=== PATIENT | male | born 1975 | race Caucasian/White ===

== ENCOUNTER 2016-12-03 14:00 | Inpatient (IN) | payer MEDICARE, MEDICAID ==
[~2016-12-03] VITALS: Ht 188 cm; Wt 94.1 kg
[~2016-12-03 14:00] MED LIST: AMLO-511 PO; DIVA500T69 PO; DULO30CA2 PO; DULO60CA44 PO; LEVE500T53 PO; OLAN10TA22 PO; OLAN10TA6 PO; POLY238P2 PO
[2016-12-03] MEDS ORDERED: LORazepam 2 MG/ML VIAL IM ONE ×2 (14:15→17:15)
[2016-12-03] MEDS ORDERED: DiphenhydrAMINE HCL 50 MG/ML VIAL IM ONE ×2 (14:15→17:15)
[2016-12-03] MEDS ORDERED: ZOLPIDEM TARTRATE 10 MG TABLET PO PRN (14:15)
[2016-12-03] MEDS ORDERED: DULO30CA2 PO (14:20)
[2016-12-03] MEDS ORDERED: OLAN10TA6 PO (14:20)
[2016-12-03 16:13] VITALS: BP 120/70
[2016-12-03] MEDS: OLANZapine 10 MG RAPDIS TABLET PO SCH (21:01)
[2016-12-04] MEDS: ChlorproMAZINE HCL 100 MG TABLET PO PRN (09:19)
[2016-12-04] MEDS: HydrOXYzine PAMOATE 50 MG CAPSULE PO PRN (09:20)
[2016-12-04] MEDS: DULoxetine HCL 30 MG CAPSULE PO SCH (09:20)
[2016-12-04 16:12] VITALS: BP 108/69
[2016-12-04] MEDS: OxyCODONE HCL 5 MG IR TABLET PO PRN ×2 (16:31→20:39)
[2016-12-04 16:32] VITALS: BP 126/77
[2016-12-04] MEDS ORDERED: MAG HYDROX/AL HYDROX/SIMETH ES 30 ML SUSPENSION UDCUP PO PRN (19:30)
[2016-12-04] MEDS ORDERED: ACETAMINOPHEN 325 MG TABLET PO PRN (19:30)
[2016-12-04] MEDS ORDERED: IBUPROFEN 600 MG TABLET PO PRN (19:30)
[2016-12-04] MEDS ORDERED: MAGNESIUM HYDROXIDE SUSPENSION 30 ML UDCUP PO PRN (19:30)
[2016-12-04] MEDS ORDERED: BENZOCAINE/MENTHOL LOZENGE MM PRN (19:30)
[2016-12-04] MEDS ORDERED: PETROLATUM,WHITE 71 GM JELLY TP PRN (19:30)
[2016-12-04] MEDS ORDERED: CloNIDine HCL 0.1 MG TABLET PO PRN (19:30)
[2016-12-04] MEDS ORDERED: ONDANSETRON HCL 4 MG TABLET PO PRN (19:30)
[2016-12-04] MEDS ORDERED: ALBUTEROL SULFATE HFA 90 MCG/PUFF 8 GM INHALER IH PRN (19:30)
[2016-12-04] MEDS ORDERED: LOPERAMIDE HCL 2 MG CAPSULE PO PRN (19:30)
[2016-12-04] MEDS ORDERED: BACITRACIN 28.4 GM OINTMENT TP PRN (19:30)
[2016-12-04] MEDS ORDERED: BENZOCAINE/MENTHOL LOZENGE PO PRN (20:00)
[2016-12-04] MEDS: OLANZapine 10 MG RAPDIS TABLET PO SCH (20:38)
[2016-12-04] MEDS ORDERED: FLUTICASONE PROPIONATE 50 MCG/SPRAY 16 GM NASAL SPRAY NASAL PRN (21:15)
[2016-12-05] MEDS: OxyCODONE HCL 5 MG IR TABLET PO PRN ×4 (01:51→17:25)
[2016-12-05 01:52] VITALS: BP 124/75
[2016-12-05 08:09] LABS: BASOPHILS # (AUTO) 0.02 K/uL (0.00-0.20); BASOPHILS % (AUTO) 0.3 % (0.0-2.0); EOSINOPHILS # (AUTO) 0.17 K/uL (0.00-0.70); EOSINOPHILS % (AUTO) 2.27 % (1.0-6.0); HEMATOCRIT 37.7 % (41-53); HEMOGLOBIN 13.2 g/dL (13.5-17.5); LYMPHOCYTES # (AUTO) 2.1 K/uL (1.0-4.8); LYMPHOCYTES % (AUTO) 27.1 % (22.0-44.0); MEAN CORPUSCULAR HEMOGLOBIN 28.8 pg (26.0-34.0); MEAN CORPUSCULAR VOLUME 83 fL (80-100); MONOCYTES # (AUTO) 0.8 K/uL (0.1-1.0); MONOCYTES % (AUTO) 10.5 % (2.0-9.0); NEUTROPHILS # (AUTO) 4.5 K/uL (1.8-7.7); NEUTROPHILS % (AUTO) 59.8 % (40.0-70.0); PLATELET COUNT (AUTO) 237 K/uL (150-450); RED BLOOD CELL COUNT(AUTO) 4.58 MIL/uL (4.50-5.90); RED CELL DISTRIBUTION WIDTH 13.5 % (11.5-14.5); WHITE BLOOD COUNT (AUTO) 7.6 K/uL (4.5-11.0)
[2016-12-05 08:27] LABS: ALANINE AMINOTRANSFERASE 29 U/L (12-78); ALBUMIN 3.7 g/dL (3.4-5.0); ANION GAP 5 mmol/L (8-16); ASPARTATE AMINOTRANSFERASE 21 U/L (15-37); BILIRUBIN,TOTAL 0.3 mg/dL (0.1-1.0); CALCIUM, TOTAL 8.5 mg/dL (8.8-10.5); CARBON DIOXIDE 30 mmol/L (22-29); CHLORIDE 98 mmol/L (98-107); CREATININE 0.94 mg/dL (0.60-1.30); GLOMERULAR FILTR. RATE CALC > 60 mL/min (>60); POTASSIUM 4.3 mmol/L (3.5-5.1); SODIUM SERUM 133 mmol/L (136-145); TOTAL PROTEIN, SERUM 7.1 g/dL (6.4-8.2); UREA NITROGEN, BLOOD 14 mg/dL (7-18)
[2016-12-05 08:50] VITALS: BP 106/62
[2016-12-05] MEDS: CHOLECALCIFEROL (VIT D3) 1,000 UNITS TABLET PO SCH (09:59)
[2016-12-05] MEDS: DOCUSATE SODIUM 100 MG CAPSULE PO SCH (10:00)
[2016-12-05] MEDS: LevETIRAcetam 500 MG TABLET PO SCH ×2 (10:00→17:08)
[2016-12-05] MEDS: OMEPRAZOLE 20 MG CAPSULE PO SCH (10:00)
[2016-12-05] MEDS: DULoxetine HCL 30 MG CAPSULE PO SCH (10:00)
[2016-12-05] MEDS: NICOTINE 21 MG/24 HOUR PATCH TD SCH (11:18)
[2016-12-05 16:29] VITALS: BP 108/69
[2016-12-05 17:20] VITALS: BP 110/73
[2016-12-05] MEDS: OLANZapine 10 MG RAPDIS TABLET PO SCH (20:18)
[2016-12-06 02:10] VITALS: BP 116/66
[2016-12-06] MEDS: OxyCODONE HCL 5 MG IR TABLET PO PRN ×4 (02:18→20:38)
[2016-12-06 07:06] VITALS: BP 113/80
[2016-12-06] MEDS ORDERED: GuaiFENesin/D-METHORPHAN/PHENYLEPH 5 ML LIQUID ORAL.SYG PO PRN (07:15)
[2016-12-06 08:08] VITALS: BP 117/70
[2016-12-06] MEDS: DULoxetine HCL 30 MG CAPSULE PO SCH (09:33)
[2016-12-06] MEDS: LevETIRAcetam 500 MG TABLET PO SCH ×2 (09:33→17:39)
[2016-12-06] MEDS: DOCUSATE SODIUM 100 MG CAPSULE PO SCH (09:33)
[2016-12-06] MEDS: CHOLECALCIFEROL (VIT D3) 1,000 UNITS TABLET PO SCH (09:33)
[2016-12-06] MEDS: OMEPRAZOLE 20 MG CAPSULE PO SCH (09:33)
[2016-12-06] MEDS: NICOTINE 21 MG/24 HOUR PATCH TD SCH (10:13)
[2016-12-06 12:20] VITALS: BP 128/74
[2016-12-06 12:22] VITALS: BP 128/76
[2016-12-06] MEDS: HydrOXYzine PAMOATE 50 MG CAPSULE PO PRN (13:05)
[2016-12-06] MEDS: ChlorproMAZINE HCL 100 MG TABLET PO PRN (13:05)
[2016-12-06] MEDS: MUPIROCIN CALCIUM 2% 22 GM OINTMENT NASAL SCH (17:39)
[2016-12-06 20:35] VITALS: BP 134/76
[2016-12-06] MEDS: OLANZapine 10 MG RAPDIS TABLET PO SCH (20:37)
[2016-12-07 02:15] VITALS: BP 120/79
[2016-12-07] MEDS: OxyCODONE HCL 5 MG IR TABLET PO PRN ×4 (02:24→14:25)
[2016-12-07 06:25] VITALS: BP 123/70
[2016-12-07 08:00] VITALS: BP 109/81
[2016-12-07] MEDS: DULoxetine HCL 30 MG CAPSULE PO SCH (08:54)
[2016-12-07] MEDS: LevETIRAcetam 500 MG TABLET PO SCH ×2 (08:54→17:33)
[2016-12-07] MEDS: CHOLECALCIFEROL (VIT D3) 1,000 UNITS TABLET PO SCH (08:54)
[2016-12-07] MEDS: DOCUSATE SODIUM 100 MG CAPSULE PO SCH (08:54)
[2016-12-07] MEDS: OMEPRAZOLE 20 MG CAPSULE PO SCH (08:55)
[2016-12-07] MEDS: NICOTINE 21 MG/24 HOUR PATCH TD SCH (08:56)
[2016-12-07] MEDS: MUPIROCIN CALCIUM 2% 22 GM OINTMENT NASAL SCH ×2 (10:02→17:32)
[2016-12-07 10:33] VITALS: BP 110/87
[2016-12-07 14:20] VITALS: BP 125/94
[2016-12-07 17:13] VITALS: BP 112/81
[2016-12-07] MEDS: HydrOXYzine PAMOATE 50 MG CAPSULE PO PRN (17:35)
[2016-12-07] MEDS: ChlorproMAZINE HCL 100 MG TABLET PO PRN (17:35)
[2016-12-07] MEDS: OLANZapine 10 MG RAPDIS TABLET PO SCH (21:57)
[2016-12-08 04:20] VITALS: BP 114/80
[2016-12-08] MEDS: OxyCODONE HCL 5 MG IR TABLET PO PRN ×4 (04:20→16:44)
[2016-12-08 08:32] VITALS: BP 121/78
[2016-12-08] MEDS: DULoxetine HCL 30 MG CAPSULE PO SCH (09:08)
[2016-12-08] MEDS: CHOLECALCIFEROL (VIT D3) 1,000 UNITS TABLET PO SCH (09:08)
[2016-12-08] MEDS: OMEPRAZOLE 20 MG CAPSULE PO SCH (09:08)
[2016-12-08] MEDS: MUPIROCIN CALCIUM 2% 22 GM OINTMENT NASAL SCH ×2 (09:08→16:28)
[2016-12-08] MEDS: LevETIRAcetam 500 MG TABLET PO SCH ×2 (09:08→16:28)
[2016-12-08] MEDS: DOCUSATE SODIUM 100 MG CAPSULE PO SCH (09:09)
[2016-12-08] MEDS: NICOTINE 21 MG/24 HOUR PATCH TD SCH (09:11)
[2016-12-08 09:36] VITALS: BP 139/84
[2016-12-08 12:41] VITALS: BP 120/77
[2016-12-08 16:43] VITALS: BP 127/86
[2016-12-08] MEDS: OLANZapine 10 MG RAPDIS TABLET PO SCH (21:08)
[2016-12-09 04:17] VITALS: BP 145/88
[2016-12-09] MEDS: OxyCODONE HCL 5 MG IR TABLET PO PRN ×3 (04:21→12:40)
[2016-12-09 08:00] VITALS: BP 156/78
[2016-12-09 08:35] VITALS: BP 150/82
[2016-12-09] MEDS: LevETIRAcetam 500 MG TABLET PO SCH (08:38)
[2016-12-09] MEDS: CHOLECALCIFEROL (VIT D3) 1,000 UNITS TABLET PO SCH (08:38)
[2016-12-09] MEDS: DULoxetine HCL 30 MG CAPSULE PO SCH (08:38)
[2016-12-09] MEDS: DOCUSATE SODIUM 100 MG CAPSULE PO SCH (08:38)
[2016-12-09] MEDS: OMEPRAZOLE 20 MG CAPSULE PO SCH (08:38)
[2016-12-09] MEDS: NICOTINE 21 MG/24 HOUR PATCH TD SCH (08:41)
[2016-12-09] MEDS: MUPIROCIN CALCIUM 2% 22 GM OINTMENT NASAL SCH (10:33)
[2016-12-09] MEDS ORDERED: OLAN10TA6 PO (11:48)
[2016-12-09] MEDS ORDERED: OMEP20 PO (11:48)
[2016-12-09] MEDS ORDERED: LEVE500T53 PO (11:48)
[2016-12-09] MEDS ORDERED: VITAD1000 PO (11:48)
[2016-12-09] MEDS ORDERED: DSS100 PO (11:48)
[2016-12-09] MEDS ORDERED: DULO30CA2 PO (11:48)
[2016-12-09 12:43] VITALS: BP 129/81
== END 2016-12-09 14:57 | disposition home or self-care (01) | DRG 885 ==
LOC: B3A 14:10 → B2S 12-05 18:01 → 3EI 12-06 13:45
PROVIDERS: ADMIT Psychiatry & Neurology Psychiatry; ATTEND Psychiatry & Neurology Psychiatry
DX: F25.0 Schizoaffective disorder, bipolar type (principal); F11.20 Opioid dependence, uncomplicated; R45.851 Suicidal ideations; I10 Essential (primary) hypertension; B18.2 Chronic viral hepatitis C; E55.9 Vitamin D deficiency, unspecified; F12.90 Cannabis use, unspecified, uncomplicated; F14.90 Cocaine use, unspecified, uncomplicated; F17.200 Nicotine dependence, unspecified, uncomplicated; G40.909 Epilepsy, unspecified, not intractable, without status epilepticus; G47.00 Insomnia, unspecified; G89.29 Other chronic pain; J44.9 Chronic obstructive pulmonary disease, unspecified; K21.9 Gastro-esophageal reflux disease without esophagitis; K59.00 Constipation, unspecified; K74.60 Unspecified cirrhosis of liver; Z91.14 Patient's other noncompliance with medication regimen; Z71.6 Tobacco abuse counseling; Z71.51 Drug abuse counseling and surveillance of drug abuser; Z88.8 Allergy status to other drugs, medicaments and biological substances; Z79.899 Other long term (current) drug therapy; Z72.89 Other problems related to lifestyle; Z82.49 Family history of ischemic heart disease and other diseases of the circulatory system; Z81.8 Family history of other mental and behavioral disorders
CPT/HCPCS: 87081; A0429; J1200; J2060; J3230

== ENCOUNTER → 2016-12-22 | Outpatient (CLI) | payer MEDICARE, MEDICAID ==
[~2016-12-22] VITALS: Ht 188 cm; Wt 93.5 kg
[~2016-12-22] MED LIST changes: +ACAM333T7 PO; -AMLO-511 PO; -DIVA500T69 PO; +DSS100 PO; -DULO60CA44 PO; +MIRALAX PO; -OLAN10TA22 PO; +OLAN5Z PO; +OMEP20 PO; -POLY238P2 PO; +SULF1TAB42 PO; +VITAD1000 PO
[2016-12-22 12:34] VITALS: BP 118/80
== END | disposition home or self-care (01) ==
LOC: SRCNTR 11:54
PROVIDERS: ATTEND Hospitalist
DX: J44.9 Chronic obstructive pulmonary disease, unspecified (principal); I10 Essential (primary) hypertension; E03.9 Hypothyroidism, unspecified; E78.5 Hyperlipidemia, unspecified; G89.29 Other chronic pain; G40.909 Epilepsy, unspecified, not intractable, without status epilepticus; B18.2 Chronic viral hepatitis C
CPT/HCPCS: G0463

== ENCOUNTER 2017-01-04 10:48 | Inpatient (IN) | payer MEDICARE, MEDICAID ==
[~2017-01-04] VITALS: Ht 188 cm; Wt 94.0 kg
[~2017-01-04 10:48] MED LIST changes: -ACAM333T7 PO; -MIRALAX PO; -OLAN5Z PO; -SULF1TAB42 PO
[2017-01-04 11:09] VITALS: BP 121/80
[2017-01-04] MEDS ORDERED: ZOLPIDEM TARTRATE 10 MG TABLET PO PRN (11:30)
[2017-01-04 13:00] VITALS: BP 113/68
[2017-01-04] MEDS: DULoxetine HCL 30 MG CAPSULE PO SCH (13:25)
[2017-01-04 16:00] VITALS: BP 117/76
[2017-01-04] MEDS: LORazepam 2 MG TABLET PO PRN (16:44)
[2017-01-04] MEDS: LevETIRAcetam 500 MG TABLET PO SCH (17:14)
[2017-01-04] MEDS ORDERED: DiphenhydrAMINE HCL 50 MG/ML VIAL IM ONE (18:45)
[2017-01-04] MEDS ORDERED: LORazepam 2 MG/ML VIAL IM ONE (18:45)
[2017-01-04] MEDS ORDERED: FluPHENAZine HCL 2.5 MG/ML INJ IM ONE (18:45)
[2017-01-04] MEDS ORDERED: OLANZapine 10 MG RAPDIS TABLET PO SCH (21:00)
[2017-01-05 08:57] VITALS: BP 125/95
[2017-01-05] MEDS: DOCUSATE SODIUM 100 MG CAPSULE PO SCH (09:00)
[2017-01-05] MEDS: DULoxetine HCL 30 MG CAPSULE PO SCH (09:00)
[2017-01-05] MEDS: LevETIRAcetam 500 MG TABLET PO SCH ×2 (09:00→17:48)
[2017-01-05] MEDS: OMEPRAZOLE 20 MG CAPSULE PO SCH (09:00)
[2017-01-05] MEDS: CHOLECALCIFEROL (VIT D3) 1,000 UNITS TABLET PO SCH (09:00)
[2017-01-05] MEDS ORDERED: BACITRACIN 28.4 GM OINTMENT TP PRN (09:45)
[2017-01-05] MEDS ORDERED: IBUPROFEN 600 MG TABLET PO PRN (09:45)
[2017-01-05] MEDS ORDERED: LOPERAMIDE HCL 2 MG CAPSULE PO PRN (09:45)
[2017-01-05] MEDS ORDERED: MAG HYDROX/AL HYDROX/SIMETH ES 30 ML SUSPENSION UDCUP PO PRN (09:45)
[2017-01-05] MEDS ORDERED: ONDANSETRON HCL 4 MG TABLET PO PRN (09:45)
[2017-01-05] MEDS ORDERED: PETROLATUM,WHITE 71 GM JELLY TP PRN (09:45)
[2017-01-05] MEDS ORDERED: ALBUTEROL SULFATE HFA 90 MCG/PUFF 8 GM INHALER IH PRN (09:45)
[2017-01-05] MEDS ORDERED: MAGNESIUM HYDROXIDE SUSPENSION 30 ML UDCUP PO PRN (09:45)
[2017-01-05] MEDS ORDERED: CloNIDine HCL 0.1 MG TABLET PO PRN (09:45)
[2017-01-05] MEDS ORDERED: BENZOCAINE/MENTHOL LOZENGE [8 LOZENGES/PACKET] MM PRN (09:45)
[2017-01-05] MEDS ORDERED: ACETAMINOPHEN 325 MG TABLET PO PRN (09:45)
[2017-01-05] MEDS: LORazepam 2 MG TABLET PO PRN ×2 (11:04→15:12)
[2017-01-05] MEDS ORDERED: HydrOXYzine PAMOATE 50 MG CAPSULE PO PRN ×2 (13:30→16:45)
[2017-01-05] MEDS ORDERED: GuaiFENesin/D-METHORPHAN [SUGAR-FREE] 200-20MG/10 ML SYRUP UDCUP PO PRN (13:30)
[2017-01-05 16:20] VITALS: BP 91/56
[2017-01-05] MEDS ORDERED: GABAPENTIN 400 MG CAPSULE PO PRN (16:45)
[2017-01-05] MEDS ORDERED: ESZOPICLONE 3 MG TABLET PO PRN (16:45)
[2017-01-05] MEDS: OxyCODONE HCL 5 MG IR TABLET PO PRN (17:46)
[2017-01-05] MEDS: THIAMINE HCL 100 MG TABLET PO SCH (17:48)
[2017-01-05] MEDS: ACAMPROSATE CALCIUM 333 MG DR TABLET PO SCH (17:48)
[2017-01-05 17:49] VITALS: BP 118/76
[2017-01-05] MEDS ORDERED: FluPHENAZine HCL 2.5 MG/ML INJ IM ONE ×2 (19:30→19:35)
[2017-01-05] MEDS ORDERED: OLANZapine 5 MG RAPDIS TABLET PO PRN (19:30)
[2017-01-05] MEDS ORDERED: DiphenhydrAMINE HCL 50 MG/ML VIAL IM ONE (19:30)
[2017-01-05] MEDS ORDERED: DiphenhydrAMINE HCL 50 MG/ML VIAL ONE (19:36)
[2017-01-05] MEDS ORDERED: OLANZapine 5 MG RAPDIS TABLET PO SCH (21:00)
[2017-01-06 03:46] VITALS: BP 135/77
[2017-01-06] MEDS: OxyCODONE HCL 5 MG IR TABLET PO PRN ×4 (03:50→17:45)
[2017-01-06] MEDS ORDERED: MULTIVITAMINS WITH MINERALS, THERAPEUTIC TABLET PO SCH (09:00)
[2017-01-06] MEDS ORDERED: FOLIC ACID 1 MG TABLET PO SCH (09:00)
[2017-01-06] MEDS: DOCUSATE SODIUM 100 MG CAPSULE PO SCH (09:08)
[2017-01-06] MEDS: LevETIRAcetam 500 MG TABLET PO SCH ×2 (09:08→16:26)
[2017-01-06] MEDS: DULoxetine HCL 30 MG CAPSULE PO SCH (09:08)
[2017-01-06] MEDS: THIAMINE HCL 100 MG TABLET PO SCH ×2 (09:08→16:26)
[2017-01-06] MEDS: OMEPRAZOLE 20 MG CAPSULE PO SCH (09:08)
[2017-01-06] MEDS: ACAMPROSATE CALCIUM 333 MG DR TABLET PO SCH ×3 (09:08→16:26)
[2017-01-06 09:10] VITALS: BP 143/87
[2017-01-06] MEDS: CHOLECALCIFEROL (VIT D3) 1,000 UNITS TABLET PO SCH (09:16)
[2017-01-06 13:42] VITALS: BP 121/76
[2017-01-06] MEDS ORDERED: OLAN5Z PO (16:17)
[2017-01-06] MEDS ORDERED: DULO30CA2 PO (16:17)
[2017-01-06] MEDS ORDERED: LEVE500T53 PO (16:17)
[2017-01-06] MEDS ORDERED: ACAM333T7 PO (16:17)
[2017-01-06] MEDS ORDERED: OMEP20 PO (16:47)
== END 2017-01-06 17:45 | disposition home or self-care (01) | DRG 885 ==
LOC: B2S 12:33 → EDSTATUS 12:38 → 3EX 17:10
PROVIDERS: ADMIT Psychiatry & Neurology Psychiatry; ATTEND Psychiatry & Neurology Psychiatry
PROC: GZ51ZZZ Individual Psychotherapy, Behavioral (ICD-10-PCS; principal; 2017-01-04)
DX: F25.9 Schizoaffective disorder, unspecified (principal); R45.851 Suicidal ideations; F11.20 Opioid dependence, uncomplicated; E87.1 Hypo-osmolality and hyponatremia; F32.9 Major depressive disorder, single episode, unspecified; J44.9 Chronic obstructive pulmonary disease, unspecified; I10 Essential (primary) hypertension; G40.909 Epilepsy, unspecified, not intractable, without status epilepticus; B18.2 Chronic viral hepatitis C; E55.9 Vitamin D deficiency, unspecified; G47.33 Obstructive sleep apnea (adult) (pediatric); T40.605A Adverse effect of unspecified narcotics, initial encounter; K59.03 Drug induced constipation; Z79.899 Other long term (current) drug therapy; F15.90 Other stimulant use, unspecified, uncomplicated; F17.210 Nicotine dependence, cigarettes, uncomplicated; F12.90 Cannabis use, unspecified, uncomplicated; Z98.890 Other specified postprocedural states; Z71.6 Tobacco abuse counseling; Z71.51 Drug abuse counseling and surveillance of drug abuser; Z91.14 Patient's other noncompliance with medication regimen; Z87.09 Personal history of other diseases of the respiratory system; Z82.5 Family history of asthma and other chronic lower respiratory diseases; Z82.49 Family history of ischemic heart disease and other diseases of the circulatory system; X58.XXXA Exposure to other specified factors, initial encounter; Y93.89 Activity, other specified; Y92.89 Other specified places as the place of occurrence of the external cause; Y99.8 Other external cause status; Z88.8 Allergy status to other drugs, medicaments and biological substances
CPT/HCPCS: 87081; J1200; J2060; J3490; J3535

== ENCOUNTER 2017-01-14 14:45 | Inpatient (IN) | payer MEDICARE, MEDICAID ==
[~2017-01-14] VITALS: Ht 182.9 cm; Wt 92.1 kg
[~2017-01-14 14:45] MED LIST changes: +ACAM333T7 PO; -OLAN10TA6 PO; +OLAN5Z PO; -VITAD1000 PO
[2017-01-14] MEDS ORDERED: ZOLPIDEM TARTRATE 10 MG TABLET PO PRN (18:00)
[2017-01-14] MEDS ORDERED: LORazepam 2 MG TABLET PO PRN (18:00)
[2017-01-14] MEDS ORDERED: OLANZapine 5 MG RAPDIS TABLET PO PRN (18:00)
[2017-01-14] MEDS ORDERED: LIDOCAINE HCL/PF 1% 2 ML VIAL IM ONE (18:15)
[2017-01-14] MEDS ORDERED: CefTRIAXone SODIUM 1 GM/VIAL IM ONE (18:15)
[2017-01-14] MEDS ORDERED: KETOROLAC TROMETHAMINE 30 MG/ML VIAL IM ONE (18:15)
[2017-01-14] MEDS ORDERED: OLANZapine 5 MG TABLET PO ONE (19:15)
[2017-01-14] MEDS ORDERED: LORazepam 2 MG/ML VIAL IM ONE (19:15)
[2017-01-14] MEDS ORDERED: DiphenhydrAMINE HCL 50 MG/ML VIAL IM ONE (19:15)
[2017-01-14 20:16] LABS: BASOPHILS % (AUTO) 0.2 % (0.0-2.0); EOSINOPHILS % (AUTO) 1.6 % (1.0-6.0); HEMATOCRIT 40.3 % (41-53); HEMOGLOBIN 13.5 g/dL (13.5-17.5); LYMPHOCYTES # (AUTO) 2.1 K/uL (1.0-4.8); LYMPHOCYTES % (AUTO) 20.4 % (22.0-44.0); MEAN CORPUSCULAR HEMOGLOBIN 28.3 pg (26.0-34.0); MEAN CORPUSCULAR HGB CONC 33.6 G/dL (31.0-37.0); MEAN CORPUSCULAR VOLUME 84 fL (80-100); MONOCYTES # (AUTO) 0.9 K/uL (0.1-1.0); NEUTROPHILS % (AUTO) 68.8 % (40.0-70.0); PLATELET COUNT (AUTO) 261 K/uL (150-450); RED BLOOD CELL COUNT(AUTO) 4.79 MIL/uL (4.50-5.90); RED CELL DISTRIBUTION WIDTH 12.9 % (11.5-14.5); WHITE BLOOD COUNT (AUTO) 10.1 K/uL (4.5-11.0)
[2017-01-14 20:22] LABS: ANION GAP 13 mmol/L (8-16); CALCIUM, TOTAL 9.1 mg/dL (8.8-10.5); CARBON DIOXIDE 25 mmol/L (22-29); CHLORIDE 99 mmol/L (98-107); CREATININE 0.97 mg/dL (0.60-1.30); GLOMERULAR FILTR. RATE CALC > 60 mL/min (>60); POTASSIUM 3.2 mmol/L (3.5-5.1); SODIUM SERUM 137 mmol/L (136-145); UREA NITROGEN, BLOOD 11 mg/dL (7-18)
[2017-01-14 20:29] LABS: ALANINE AMINOTRANSFERASE 46 U/L (12-78); ALBUMIN 3.7 g/dL (3.4-5.0); ASPARTATE AMINOTRANSFERASE 45 U/L (15-37); BILIRUBIN,TOTAL 0.7 mg/dL (0.1-1.0); TOTAL PROTEIN, SERUM 8.1 g/dL (6.4-8.2)
[2017-01-14] MEDS ORDERED: POTASSIUM CHLORIDE 20 MEQ ER TABLET PO ONE (20:45)
[2017-01-14 21:11] VITALS: BP 114/72
[2017-01-14] MEDS ORDERED: ACETAMINOPHEN 325 MG TABLET PO PRN (21:30)
[2017-01-14] MEDS ORDERED: INFLUENZA VIRUS VACCINE QVS 2016-17 (3YR+)/PF 60 MCG/0.5 ML SYRINGE IM ONE (21:30)
[2017-01-14] MEDS ORDERED: -PHARMACY VACCINE NOTE- MISC ONE ×2 (21:30)
[2017-01-14] MEDS ORDERED: IBUPROFEN 600 MG TABLET PO PRN (21:30)
[2017-01-15] MEDS: DOCUSATE SODIUM 100 MG CAPSULE PO SCH (09:00)
[2017-01-15] MEDS: CHOLECALCIFEROL (VIT D3) 1,000 UNITS TABLET PO SCH (09:00)
[2017-01-15] MEDS: POLYETHYLENE GLYCOL 3350 17 GM PACKET PO SCH (09:00)
[2017-01-15] MEDS: LevETIRAcetam 500 MG TABLET PO SCH ×2 (09:00→17:00)
[2017-01-15] MEDS: OMEPRAZOLE 20 MG CAPSULE PO SCH (09:00)
[2017-01-15 10:02] VITALS: BP 135/86
[2017-01-15] MEDS: OxyCODONE HCL 5 MG IR TABLET PO PRN ×3 (10:02→23:59)
[2017-01-15 11:02] VITALS: BP 125/76
[2017-01-15] MEDS ORDERED: POTASSIUM CHLORIDE 20 MEQ ER TABLET PO ONE (12:00)
[2017-01-15] MEDS ORDERED: MAGNESIUM HYDROXIDE SUSPENSION 30 ML UDCUP PO PRN (12:15)
[2017-01-15] MEDS ORDERED: HydrOXYzine PAMOATE 50 MG CAPSULE PO PRN (12:15)
[2017-01-15] MEDS ORDERED: PROMETHAZINE HCL 25 MG TABLET PO PRN (12:15)
[2017-01-15] MEDS ORDERED: GuaiFENesin/D-METHORPHAN [SUGAR-FREE] 200-20MG/10 ML SYRUP UDCUP PO PRN (12:15)
[2017-01-15] MEDS ORDERED: ACETAMINOPHEN 325 MG TABLET PO PRN (12:15)
[2017-01-15] MEDS ORDERED: MAG HYDROX/AL HYDROX/SIMETH ES 30 ML SUSPENSION UDCUP PO PRN (12:15)
[2017-01-15] MEDS ORDERED: LOPERAMIDE HCL 2 MG CAPSULE PO PRN (12:15)
[2017-01-15] MEDS: ACAMPROSATE CALCIUM 333 MG DR TABLET PO SCH ×2 (12:42→17:00)
[2017-01-15 14:29] VITALS: BP 113/82
[2017-01-15] MEDS: CEPHALEXIN MONOHYDRATE 500 MG CAPSULE PO SCH ×2 (17:00→21:00)
[2017-01-15] MEDS: THIAMINE HCL 100 MG TABLET PO SCH (17:00)
[2017-01-15] MEDS ORDERED: LevETIRAcetam 500 MG TABLET PO SCH (17:00)
[2017-01-15] MEDS: OLANZapine 5 MG RAPDIS TABLET PO SCH (21:00)
[2017-01-16] VITALS: BP 115/66
[2017-01-16 05:40] VITALS: BP 141/90
[2017-01-16] MEDS: OxyCODONE HCL 5 MG IR TABLET PO PRN ×3 (05:43→14:49)
[2017-01-16] MEDS: ACAMPROSATE CALCIUM 333 MG DR TABLET PO SCH ×3 (08:32→16:15)
[2017-01-16] MEDS: DULoxetine HCL 30 MG CAPSULE PO SCH (08:33)
[2017-01-16] MEDS: FOLIC ACID 1 MG TABLET PO SCH (08:33)
[2017-01-16] MEDS: DOCUSATE SODIUM 100 MG CAPSULE PO SCH (08:33)
[2017-01-16] MEDS: CEPHALEXIN MONOHYDRATE 500 MG CAPSULE PO SCH ×4 (08:34→20:57)
[2017-01-16] MEDS: POLYETHYLENE GLYCOL 3350 17 GM PACKET PO SCH (08:34)
[2017-01-16] MEDS: LevETIRAcetam 500 MG TABLET PO SCH ×2 (08:34→16:15)
[2017-01-16] MEDS: CHOLECALCIFEROL (VIT D3) 1,000 UNITS TABLET PO SCH (08:35)
[2017-01-16] MEDS: THIAMINE HCL 100 MG TABLET PO SCH ×2 (08:35→16:15)
[2017-01-16] MEDS: MULTIVITAMINS WITH MINERALS, THERAPEUTIC TABLET PO SCH (08:35)
[2017-01-16] MEDS: OMEPRAZOLE 20 MG CAPSULE PO SCH (08:35)
[2017-01-16 10:43] VITALS: BP 116/93
[2017-01-16 16:00] VITALS: BP 121/85
[2017-01-16] MEDS: OLANZapine 5 MG RAPDIS TABLET PO SCH (20:57)
[2017-01-17 01:06] VITALS: BP 132/93
[2017-01-17] MEDS: OxyCODONE HCL 5 MG IR TABLET PO PRN ×4 (01:09→16:00)
[2017-01-17] MEDS: MULTIVITAMINS WITH MINERALS, THERAPEUTIC TABLET PO SCH (09:00)
[2017-01-17] MEDS: POLYETHYLENE GLYCOL 3350 17 GM PACKET PO SCH (09:00)
[2017-01-17] MEDS: LevETIRAcetam 500 MG TABLET PO SCH ×2 (09:00→16:01)
[2017-01-17] MEDS: OMEPRAZOLE 20 MG CAPSULE PO SCH (09:00)
[2017-01-17] MEDS: DOCUSATE SODIUM 100 MG CAPSULE PO SCH (09:00)
[2017-01-17] MEDS: ACAMPROSATE CALCIUM 333 MG DR TABLET PO SCH ×3 (09:00→16:00)
[2017-01-17] MEDS: THIAMINE HCL 100 MG TABLET PO SCH ×2 (09:00→16:01)
[2017-01-17] MEDS: FOLIC ACID 1 MG TABLET PO SCH (09:00)
[2017-01-17] MEDS: CHOLECALCIFEROL (VIT D3) 1,000 UNITS TABLET PO SCH (09:00)
[2017-01-17] MEDS: DULoxetine HCL 30 MG CAPSULE PO SCH (09:00)
[2017-01-17] MEDS: CEPHALEXIN MONOHYDRATE 500 MG CAPSULE PO SCH ×4 (09:13→20:53)
[2017-01-17 10:44] VITALS: BP 129/80
[2017-01-17 16:02] VITALS: BP 124/78
[2017-01-17] MEDS: OLANZapine 5 MG RAPDIS TABLET PO SCH (20:53)
[2017-01-18 01:01] VITALS: BP 136/86
[2017-01-18] MEDS: OxyCODONE HCL 5 MG IR TABLET PO PRN ×4 (01:01→16:10)
[2017-01-18] MEDS: CEPHALEXIN MONOHYDRATE 500 MG CAPSULE PO SCH ×4 (07:47→21:16)
[2017-01-18 07:49] VITALS: BP 137/71
[2017-01-18] MEDS: DOCUSATE SODIUM 100 MG CAPSULE PO SCH (08:35)
[2017-01-18] MEDS: ACAMPROSATE CALCIUM 333 MG DR TABLET PO SCH ×3 (08:35→16:10)
[2017-01-18] MEDS: DULoxetine HCL 30 MG CAPSULE PO SCH (08:36)
[2017-01-18] MEDS: OMEPRAZOLE 20 MG CAPSULE PO SCH (08:36)
[2017-01-18] MEDS: FOLIC ACID 1 MG TABLET PO SCH (08:36)
[2017-01-18] MEDS: POLYETHYLENE GLYCOL 3350 17 GM PACKET PO SCH (08:36)
[2017-01-18] MEDS: LevETIRAcetam 500 MG TABLET PO SCH ×2 (08:36→16:10)
[2017-01-18] MEDS: MULTIVITAMINS WITH MINERALS, THERAPEUTIC TABLET PO SCH (08:37)
[2017-01-18] MEDS: THIAMINE HCL 100 MG TABLET PO SCH ×2 (08:37→16:11)
[2017-01-18] MEDS: CHOLECALCIFEROL (VIT D3) 1,000 UNITS TABLET PO SCH (08:37)
[2017-01-18 08:49] VITALS: BP 126/84
[2017-01-18 11:57] VITALS: BP 124/89
[2017-01-18 12:57] VITALS: BP 132/76
[2017-01-18 16:11] VITALS: BP 125/84
[2017-01-18] MEDS: OLANZapine 5 MG RAPDIS TABLET PO SCH (21:16)
[2017-01-18] MEDS ORDERED: DiphenhydrAMINE HCL 50 MG/ML VIAL IM ONE (21:45)
[2017-01-18] MEDS ORDERED: FluPHENAZine HCL 2.5 MG/ML INJ IM ONE (21:45)
[2017-01-19 00:59] VITALS: BP 118/84
[2017-01-19] MEDS: OxyCODONE HCL 5 MG IR TABLET PO PRN ×5 (01:01→20:37)
[2017-01-19 08:00] VITALS: BP 128/79
[2017-01-19] MEDS: OMEPRAZOLE 20 MG CAPSULE PO SCH (09:00)
[2017-01-19] MEDS: DOCUSATE SODIUM 100 MG CAPSULE PO SCH (09:00)
[2017-01-19] MEDS: CEPHALEXIN MONOHYDRATE 500 MG CAPSULE PO SCH ×4 (09:00→20:37)
[2017-01-19] MEDS: CHOLECALCIFEROL (VIT D3) 1,000 UNITS TABLET PO SCH (09:00)
[2017-01-19] MEDS: POLYETHYLENE GLYCOL 3350 17 GM PACKET PO SCH (09:00)
[2017-01-19] MEDS: MULTIVITAMINS WITH MINERALS, THERAPEUTIC TABLET PO SCH (09:00)
[2017-01-19] MEDS: FOLIC ACID 1 MG TABLET PO SCH (09:00)
[2017-01-19] MEDS: LevETIRAcetam 500 MG TABLET PO SCH ×2 (09:00→16:04)
[2017-01-19] MEDS: DULoxetine HCL 30 MG CAPSULE PO SCH (09:00)
[2017-01-19] MEDS: ACAMPROSATE CALCIUM 333 MG DR TABLET PO SCH ×3 (09:00→16:03)
[2017-01-19] MEDS: THIAMINE HCL 100 MG TABLET PO SCH ×2 (09:00→16:04)
[2017-01-19 11:40] VITALS: BP 124/81
[2017-01-19 16:02] VITALS: BP 110/74
[2017-01-19 20:34] VITALS: BP 114/83
[2017-01-19] MEDS: OLANZapine 5 MG RAPDIS TABLET PO SCH (20:43)
[2017-01-20 02:00] VITALS: BP 119/83
[2017-01-20] MEDS: OxyCODONE HCL 5 MG IR TABLET PO PRN ×4 (02:04→18:54)
[2017-01-20] MEDS ORDERED: KETAMINE HCL 50 MG/ML 10 ML VIAL IVP ONE (04:50)
[2017-01-20] MEDS ORDERED: LIDOCAINE HCL/PF 2% 5 ML VIAL IM ONE (04:50)
[2017-01-20] MEDS ORDERED: FentaNYL CITRATE-PF 100 MCG/2 ML VIAL IVP ONE (04:50)
[2017-01-20] MEDS ORDERED: MIDAZOLAM HCL 2 MG/2 ML VIAL IVP ONE (04:50)
[2017-01-20] MEDS ORDERED: PROPOFOL 1% 20 ML VIAL IVP ONE (04:50)
[2017-01-20 06:20] VITALS: BP 116/78
[2017-01-20 08:30] VITALS: BP 119/81
[2017-01-20] MEDS: POLYETHYLENE GLYCOL 3350 17 GM PACKET PO SCH (09:00)
[2017-01-20] MEDS ORDERED: DULoxetine HCL 60 MG CAPSULE PO SCH (09:00)
[2017-01-20] MEDS: ACAMPROSATE CALCIUM 333 MG DR TABLET PO SCH ×3 (09:16→17:15)
[2017-01-20] MEDS: CEPHALEXIN MONOHYDRATE 500 MG CAPSULE PO SCH ×4 (09:16→21:08)
[2017-01-20] MEDS: THIAMINE HCL 100 MG TABLET PO SCH ×2 (09:16→17:15)
[2017-01-20] MEDS: FOLIC ACID 1 MG TABLET PO SCH (09:16)
[2017-01-20] MEDS: DOCUSATE SODIUM 100 MG CAPSULE PO SCH ×2 (09:18→17:15)
[2017-01-20] MEDS: LevETIRAcetam 500 MG TABLET PO SCH ×2 (09:18→17:15)
[2017-01-20] MEDS: MULTIVITAMINS WITH MINERALS, THERAPEUTIC TABLET PO SCH (09:18)
[2017-01-20] MEDS: OMEPRAZOLE 20 MG CAPSULE PO SCH (09:19)
[2017-01-20] MEDS: CHOLECALCIFEROL (VIT D3) 1,000 UNITS TABLET PO SCH (09:19)
[2017-01-20 11:16] VITALS: BP 130/69
[2017-01-20] MEDS ORDERED: HYDROmorphone 2 MG/ML SYRINGE IVP PRN (11:30)
[2017-01-20] MEDS ORDERED: FentaNYL CITRATE-PF 100 MCG/2 ML VIAL IVP PRN (11:30)
[2017-01-20 12:15] VITALS: BP 126/74
[2017-01-20] MEDS ORDERED: RINGERS SOLUTION,LACTATED 1,000 ML IV ONE (14:23)
[2017-01-20] MEDS ORDERED: BUPIVACAINE 0.25%/EPI 1:200,000/PF 10 ML VIAL ONE (15:29)
[2017-01-20 18:54] VITALS: BP 115/68
[2017-01-20] MEDS: OXYGEN THERAPY IH SCH (20:00)
[2017-01-20] MEDS: OLANZapine 5 MG RAPDIS TABLET PO SCH (21:10)
[2017-01-21] MEDS: OxyCODONE HCL 5 MG IR TABLET PO PRN ×4 (04:28→20:13)
[2017-01-21 04:29] VITALS: BP 134/78
[2017-01-21] MEDS: ACAMPROSATE CALCIUM 333 MG DR TABLET PO SCH ×2 (09:00→12:52)
[2017-01-21] MEDS: DOCUSATE SODIUM 100 MG CAPSULE PO SCH (09:00)
[2017-01-21] MEDS: POLYETHYLENE GLYCOL 3350 17 GM PACKET PO SCH (09:00)
[2017-01-21] MEDS: FOLIC ACID 1 MG TABLET PO SCH (09:00)
[2017-01-21] MEDS: MULTIVITAMINS WITH MINERALS, THERAPEUTIC TABLET PO SCH (09:00)
[2017-01-21] MEDS: CHOLECALCIFEROL (VIT D3) 1,000 UNITS TABLET PO SCH (09:00)
[2017-01-21] MEDS: CEPHALEXIN MONOHYDRATE 500 MG CAPSULE PO SCH ×4 (09:00→20:29)
[2017-01-21] MEDS: THIAMINE HCL 100 MG TABLET PO SCH (09:00)
[2017-01-21] MEDS: DULoxetine HCL 30 MG CAPSULE PO SCH (09:00)
[2017-01-21] MEDS: OMEPRAZOLE 20 MG CAPSULE PO SCH (09:00)
[2017-01-21] MEDS: LevETIRAcetam 500 MG TABLET PO SCH (10:21)
[2017-01-21] MEDS: SULFAMETHOX/TRIMETH DS 800-160 MG/TABLET PO SCH (10:22)
[2017-01-21 16:02] VITALS: BP 129/83
[2017-01-21] MEDS: OLANZapine 5 MG RAPDIS TABLET PO SCH (20:09)
[2017-01-21 20:10] VITALS: BP 118/78
[2017-01-22 04:45] VITALS: BP 138/78
[2017-01-22] MEDS: OxyCODONE HCL 5 MG IR TABLET PO PRN ×4 (04:51→17:00)
[2017-01-22] MEDS: OXYGEN THERAPY IH SCH (08:00)
[2017-01-22 08:55] VITALS: BP 109/74
[2017-01-22] MEDS: DOCUSATE SODIUM 100 MG CAPSULE PO SCH (08:56)
[2017-01-22] MEDS: DULoxetine HCL 30 MG CAPSULE PO SCH (08:56)
[2017-01-22] MEDS: POLYETHYLENE GLYCOL 3350 17 GM PACKET PO SCH (08:57)
[2017-01-22] MEDS: CEPHALEXIN MONOHYDRATE 500 MG CAPSULE PO SCH ×3 (08:57→12:55)
[2017-01-22] MEDS: MULTIVITAMINS WITH MINERALS, THERAPEUTIC TABLET PO SCH (08:57)
[2017-01-22] MEDS: OMEPRAZOLE 20 MG CAPSULE PO SCH (08:57)
[2017-01-22] MEDS: FOLIC ACID 1 MG TABLET PO SCH (08:57)
[2017-01-22] MEDS: SULFAMETHOX/TRIMETH DS 800-160 MG/TABLET PO SCH ×3 (08:58→17:01)
[2017-01-22] MEDS: CHOLECALCIFEROL (VIT D3) 1,000 UNITS TABLET PO SCH (08:58)
[2017-01-22] MEDS: THIAMINE HCL 100 MG TABLET PO SCH ×2 (09:00→17:00)
[2017-01-22] MEDS: LevETIRAcetam 500 MG TABLET PO SCH ×2 (09:00→17:00)
[2017-01-22] MEDS: ACAMPROSATE CALCIUM 333 MG DR TABLET PO SCH ×3 (09:00→17:00)
[2017-01-22 09:55] VITALS: BP 126/66
[2017-01-22 17:03] VITALS: BP 119/73
[2017-01-22] MEDS: OLANZapine 5 MG RAPDIS TABLET PO SCH (20:05)
[2017-01-23] MEDS: OxyCODONE HCL 5 MG IR TABLET PO PRN ×4 (07:47→20:41)
[2017-01-23 08:00] VITALS: BP 122/84
[2017-01-23 09:00] VITALS: BP 123/73
[2017-01-23] MEDS: DOCUSATE SODIUM 100 MG CAPSULE PO SCH (09:00)
[2017-01-23] MEDS: POLYETHYLENE GLYCOL 3350 17 GM PACKET PO SCH (09:00)
[2017-01-23] MEDS: SULFAMETHOX/TRIMETH DS 800-160 MG/TABLET PO SCH ×2 (09:47→16:29)
[2017-01-23] MEDS: MULTIVITAMINS WITH MINERALS, THERAPEUTIC TABLET PO SCH (09:47)
[2017-01-23] MEDS: THIAMINE HCL 100 MG TABLET PO SCH ×2 (09:47→16:33)
[2017-01-23] MEDS: FOLIC ACID 1 MG TABLET PO SCH (09:47)
[2017-01-23] MEDS: LevETIRAcetam 500 MG TABLET PO SCH ×2 (09:48→16:33)
[2017-01-23] MEDS: CHOLECALCIFEROL (VIT D3) 1,000 UNITS TABLET PO SCH (09:48)
[2017-01-23] MEDS: DULoxetine HCL 30 MG CAPSULE PO SCH (09:48)
[2017-01-23] MEDS: OMEPRAZOLE 20 MG CAPSULE PO SCH (09:48)
[2017-01-23] MEDS: ACAMPROSATE CALCIUM 333 MG DR TABLET PO SCH ×3 (09:51→16:32)
[2017-01-23 11:55] VITALS: BP 128/67
[2017-01-23 13:05] VITALS: BP 125/70
[2017-01-23] MEDS ORDERED: ACAM333T7 PO (15:58)
[2017-01-23] MEDS ORDERED: LEVE500T53 PO (15:58)
[2017-01-23] MEDS ORDERED: DULO30CA2 PO (15:58)
[2017-01-23] MEDS ORDERED: OLAN5Z PO (15:58)
[2017-01-23 16:32] VITALS: BP 120/78
[2017-01-23] MEDS: OLANZapine 5 MG RAPDIS TABLET PO SCH (20:39)
[2017-01-23 20:41] VITALS: BP 140/88
[2017-01-24 07:35] VITALS: BP 128/87
[2017-01-24] MEDS: OxyCODONE HCL 5 MG IR TABLET PO PRN ×2 (07:35→11:36)
[2017-01-24] MEDS: OMEPRAZOLE 20 MG CAPSULE PO SCH (07:36)
[2017-01-24] MEDS: ACAMPROSATE CALCIUM 333 MG DR TABLET PO SCH (07:36)
[2017-01-24] MEDS: DOCUSATE SODIUM 100 MG CAPSULE PO SCH (07:36)
[2017-01-24] MEDS: CHOLECALCIFEROL (VIT D3) 1,000 UNITS TABLET PO SCH (07:36)
[2017-01-24] MEDS: LevETIRAcetam 500 MG TABLET PO SCH (07:36)
[2017-01-24] MEDS: FOLIC ACID 1 MG TABLET PO SCH (07:37)
[2017-01-24] MEDS: DULoxetine HCL 30 MG CAPSULE PO SCH (07:37)
[2017-01-24] MEDS: SULFAMETHOX/TRIMETH DS 800-160 MG/TABLET PO SCH (07:37)
[2017-01-24] MEDS: THIAMINE HCL 100 MG TABLET PO SCH (07:38)
[2017-01-24] MEDS: MULTIVITAMINS WITH MINERALS, THERAPEUTIC TABLET PO SCH (07:43)
[2017-01-24] MEDS: POLYETHYLENE GLYCOL 3350 17 GM PACKET PO SCH (07:43)
[2017-01-24] MEDS ORDERED: VITAD1000 PO (08:25)
[2017-01-24] MEDS ORDERED: MIRALAX PO (08:25)
[2017-01-24] MEDS ORDERED: OMEP20 PO (08:25)
[2017-01-24] MEDS ORDERED: SULF1TAB42 PO (08:26)
[2017-01-24 11:36] VITALS: BP 128/87
== END 2017-01-24 12:45 | disposition home or self-care (01) | DRG 876 ==
LOC: EMS 14:47 → B2S 17:04 → 3EX 17:04
PROVIDERS: ADMIT Psychiatry & Neurology Psychiatry; ATTEND Psychiatry & Neurology Psychiatry
PROC: 0J9D0ZZ Drainage of Right Upper Arm Subcutaneous Tissue and Fascia, Open Approach (ICD-10-PCS; principal; 2017-01-20 15:40)
DX: F25.1 Schizoaffective disorder, depressive type (principal); R45.851 Suicidal ideations; F11.20 Opioid dependence, uncomplicated; F15.20 Other stimulant dependence, uncomplicated; L02.413 Cutaneous abscess of right upper limb; L03.114 Cellulitis of left upper limb; L03.113 Cellulitis of right upper limb; J44.9 Chronic obstructive pulmonary disease, unspecified; I50.9 Heart failure, unspecified; I11.0 Hypertensive heart disease with heart failure; F17.210 Nicotine dependence, cigarettes, uncomplicated; B19.20 Unspecified viral hepatitis C without hepatic coma; G40.909 Epilepsy, unspecified, not intractable, without status epilepticus; G89.4 Chronic pain syndrome; E66.9 Obesity, unspecified; M79.7 Fibromyalgia; K21.9 Gastro-esophageal reflux disease without esophagitis; G47.33 Obstructive sleep apnea (adult) (pediatric); E87.6 Hypokalemia; K59.00 Constipation, unspecified; E55.9 Vitamin D deficiency, unspecified; Z71.51 Drug abuse counseling and surveillance of drug abuser; Z72.89 Other problems related to lifestyle; Z88.8 Allergy status to other drugs, medicaments and biological substances; Z79.899 Other long term (current) drug therapy; Z91.14 Patient's other noncompliance with medication regimen; Z68.27 Body mass index [BMI] 27.0-27.9, adult; Z98.890 Other specified postprocedural states; Z28.21 Immunization not carried out because of patient refusal; Z59.0 Homelessness; Z87.01 Personal history of pneumonia (recurrent); Z87.09 Personal history of other diseases of the respiratory system; Z82.49 Family history of ischemic heart disease and other diseases of the circulatory system; Z82.5 Family history of asthma and other chronic lower respiratory diseases
CPT/HCPCS: 87015; 87070; 87081; 87101; 87205; 96372; 99285; G0480; G0482; J0696; J1200; J1885; J2060; J2250; J2704; J3010; J3490; J7120

== ENCOUNTER 2017-12-26 04:26 | Inpatient (IN) | payer MEDICARE, MEDICAID ==
[~2017-12-26] VITALS: Ht 182.9 cm; Wt 97.5 kg
[~2017-12-26 04:26] MED LIST changes: +MIRALAX PO; +OLAN5TAB40 PO; -OLAN5Z PO; +SULF1TAB42 PO; +VITAD1000 PO
[2017-12-26 06:14] LABS: BASOPHILS % (AUTO) 0.3 % (0.0-2.0); EOSINOPHILS % (AUTO) 0.6 % (1.0-6.0); HEMATOCRIT 40.4 % (41-53); HEMOGLOBIN 14.3 g/dL (13.5-17.5); LYMPHOCYTES # (AUTO) 2.1 K/uL (1.0-4.8); LYMPHOCYTES % (AUTO) 21.2 % (22.0-44.0); MEAN CORPUSCULAR HEMOGLOBIN 29.3 pg (26.0-34.0); MEAN CORPUSCULAR HGB CONC 35.5 G/dL (31.0-37.0); MEAN CORPUSCULAR VOLUME 83 fL (80-100); MONOCYTES # (AUTO) 0.6 K/uL (0.1-1.0); MONOCYTES % (AUTO) 6.2 % (2.0-9.0); NEUTROPHILS # (AUTO) 7.1 K/uL (1.8-7.7); NEUTROPHILS % (AUTO) 71.7 % (40.0-70.0); PLATELET COUNT (AUTO) 308 K/uL (150-450); RED BLOOD CELL COUNT(AUTO) 4.89 MIL/uL (4.50-5.90); RED CELL DISTRIBUTION WIDTH 12.9 % (11.5-14.5)
[2017-12-26 06:31] LABS: ANION GAP 9 mmol/L (8-16); CALCIUM, TOTAL 9.5 mg/dL (8.8-10.5); CARBON DIOXIDE 27 mmol/L (22-29); CHLORIDE 104 mmol/L (98-107); CREATININE 0.77 mg/dL (0.60-1.30); GLOMERULAR FILTR. RATE CALC > 60 mL/min (>60); GLUCOSE,RANDOM 97 mg/dL (70-110); POTASSIUM 4.2 mmol/L (3.5-5.1); SODIUM SERUM 140 mmol/L (136-145); UREA NITROGEN, BLOOD 18 mg/dL (7-18)
[2017-12-26 06:36] LABS: ALANINE AMINOTRANSFERASE 53 U/L (12-78); ALBUMIN 4.2 g/dL (3.4-5.0); ALKALINE PHOSPHATASE 127 U/L (46-116); ASPARTATE AMINOTRANSFERASE 38 U/L (15-37); BILIRUBIN,TOTAL 0.6 mg/dL (0.1-1.0); TOTAL PROTEIN, SERUM 8.3 g/dL (6.4-8.2)
[2017-12-26] MEDS: OLANZapine 5 MG TABLET PO PRN (15:29)
[2017-12-26 18:00] VITALS: BP 134/98
[2017-12-26] MEDS ORDERED: ACETAMINOPHEN 325 MG TABLET PO PRN (18:30)
[2017-12-26] MEDS ORDERED: LORazepam 2 MG TABLET PO PRN (19:45)
[2017-12-26] MEDS ORDERED: OLANZapine 5 MG RAPDIS TABLET PO PRN (19:45)
[2017-12-26] MEDS ORDERED: ZOLPIDEM TARTRATE 10 MG TABLET PO PRN (19:45)
[2017-12-26] MEDS ORDERED: INFLUENZA VIRUS VACCINE QVS 2017-18 (3YR+)/PF 60 MCG/0.5 ML SYRINGE IM ONE (20:45)
[2017-12-27] VITALS (7 sets, daily range): BP systolic 117–150; BP diastolic 67–91
[2017-12-27] MEDS: LORazepam 2 MG TABLET PO PRN ×2 (00:55→11:08)
[2017-12-27] MEDS: ZOLPIDEM TARTRATE 10 MG TABLET PO PRN (00:56)
[2017-12-27] MEDS: LevETIRAcetam 500 MG TABLET PO SCH ×3 (09:00→19:09)
[2017-12-27] MEDS: MULTIVITAMINS WITH MINERALS, THERAPEUTIC TABLET PO SCH (09:30)
[2017-12-27] MEDS ORDERED: MAG HYDROX/AL HYDROX/SIMETH ES 30 ML SUSPENSION UDCUP PO PRN (09:30)
[2017-12-27] MEDS ORDERED: LOPERAMIDE HCL 2 MG CAPSULE PO PRN (09:30)
[2017-12-27] MEDS: FOLIC ACID 1 MG TABLET PO SCH (09:30)
[2017-12-27] MEDS ORDERED: CYANOCOBALAMIN 1,000 MCG/ML VIAL IM ONE (09:30)
[2017-12-27] MEDS: THIAMINE HCL 100 MG TABLET PO SCH ×3 (09:30→19:09)
[2017-12-27] MEDS ORDERED: CloNIDine HCL 0.1 MG TABLET PO PRN (09:30)
[2017-12-27] MEDS ORDERED: IBUPROFEN 600 MG TABLET PO PRN (09:30)
[2017-12-27] MEDS ORDERED: GuaiFENesin/D-METHORPHAN [SUGAR-FREE] 200-20MG/10 ML SYRUP UDCUP PO PRN (09:30)
[2017-12-27] MEDS ORDERED: HydrOXYzine PAMOATE 50 MG CAPSULE PO PRN ×2 (09:30)
[2017-12-27] MEDS ORDERED: PROMETHAZINE HCL 25 MG/ML VIAL IM PRN (09:30)
[2017-12-27] MEDS: CloNIDine HCL 0.1 MG TABLET PO SCH ×4 (11:07→20:18)
[2017-12-27] MEDS ORDERED: IBUPROFEN 400 MG TABLET PO PRN (12:15)
[2017-12-27] MEDS: PANTOPRAZOLE SODIUM 40 MG DR TABLET PO SCH (12:15)
[2017-12-27] MEDS: OLANZapine 5 MG RAPDIS TABLET PO SCH (20:18)
[2017-12-28 01:30] VITALS: BP 145/96
[2017-12-28 05:30] VITALS: BP 128/68
[2017-12-28] MEDS: CloNIDine HCL 0.1 MG TABLET PO SCH ×2 (06:35→12:02)
[2017-12-28 06:36] VITALS: BP 133/85
[2017-12-28 09:07] VITALS: BP 110/73
[2017-12-28 09:45] VITALS: BP 110/73
[2017-12-28] MEDS: LevETIRAcetam 500 MG TABLET PO SCH ×2 (11:28→16:22)
[2017-12-28] MEDS: PANTOPRAZOLE SODIUM 40 MG DR TABLET PO SCH (11:28)
[2017-12-28] MEDS: THIAMINE HCL 100 MG TABLET PO SCH ×2 (11:28→16:22)
[2017-12-28] MEDS: MULTIVITAMINS WITH MINERALS, THERAPEUTIC TABLET PO SCH (11:28)
[2017-12-28] MEDS: FOLIC ACID 1 MG TABLET PO SCH (11:28)
[2017-12-28] MEDS: LORazepam 2 MG TABLET PO PRN ×2 (12:02→20:50)
[2017-12-28] MEDS: OLANZapine 5 MG TABLET PO PRN (12:04)
[2017-12-28] MEDS: OxyCODONE HCL 10 MG IR TABLET PO SCH (17:07)
[2017-12-28] MEDS ORDERED: FluPHENAZine HCL 2.5 MG/ML INJ IM ONE ×2 (17:56→18:00)
[2017-12-28] MEDS ORDERED: LORazepam 2 MG/ML VIAL IM ONE (18:00)
[2017-12-28] MEDS ORDERED: HALOPERIDOL LACTATE 5 MG/ML VIAL IM ONE (18:00)
[2017-12-28] MEDS ORDERED: DiphenhydrAMINE HCL 50 MG/ML VIAL IM ONE (18:00)
[2017-12-28 19:04] VITALS: BP 147/86
[2017-12-28] MEDS: OLANZapine 5 MG RAPDIS TABLET PO SCH (20:50)
[2017-12-28] MEDS: ZOLPIDEM TARTRATE 10 MG TABLET PO PRN (21:58)
[2017-12-29] MEDS: OxyCODONE HCL 10 MG IR TABLET PO SCH ×5 (00:21→23:57)
[2017-12-29] MEDS: OLANZapine 5 MG TABLET PO PRN (03:29)
[2017-12-29 03:30] VITALS: BP 129/82
[2017-12-29] MEDS: LORazepam 2 MG TABLET PO PRN ×4 (03:30→19:54)
[2017-12-29] MEDS: MULTIVITAMINS WITH MINERALS, THERAPEUTIC TABLET PO SCH (08:30)
[2017-12-29] MEDS: FOLIC ACID 1 MG TABLET PO SCH (08:30)
[2017-12-29] MEDS: PANTOPRAZOLE SODIUM 40 MG DR TABLET PO SCH (08:30)
[2017-12-29] MEDS: LevETIRAcetam 500 MG TABLET PO SCH ×2 (08:30→15:57)
[2017-12-29] MEDS: THIAMINE HCL 100 MG TABLET PO SCH ×2 (08:30→15:57)
[2017-12-29 09:25] VITALS: BP 127/74
[2017-12-29 10:00] VITALS: BP 130/69
[2017-12-29 12:20] VITALS: BP 128/97
[2017-12-29 18:43] VITALS: BP 111/80
[2017-12-29] MEDS: OLANZapine 5 MG RAPDIS TABLET PO SCH (19:55)
[2017-12-29] MEDS: ZOLPIDEM TARTRATE 10 MG TABLET PO PRN (21:59)
[2017-12-30] VITALS: BP 130/65
[2017-12-30] MEDS: LORazepam 2 MG TABLET PO PRN ×3 (03:40→15:41)
[2017-12-30] MEDS: OxyCODONE HCL 10 MG IR TABLET PO SCH ×4 (06:02→23:34)
[2017-12-30 08:00] VITALS: BP 139/89
[2017-12-30] MEDS: PANTOPRAZOLE SODIUM 40 MG DR TABLET PO SCH (08:10)
[2017-12-30] MEDS: MULTIVITAMINS WITH MINERALS, THERAPEUTIC TABLET PO SCH (08:10)
[2017-12-30] MEDS: FOLIC ACID 1 MG TABLET PO SCH (08:10)
[2017-12-30] MEDS: LevETIRAcetam 500 MG TABLET PO SCH ×2 (08:11→17:07)
[2017-12-30] MEDS: THIAMINE HCL 100 MG TABLET PO SCH ×2 (08:11→17:08)
[2017-12-30] MEDS: NICOTINE 21 MG/24 HOUR PATCH TD SCH (12:04)
[2017-12-30] MEDS: OLANZapine 5 MG TABLET PO PRN (15:41)
[2017-12-30 16:15] VITALS: BP 115/57
[2017-12-30] MEDS: POLYETHYLENE GLYCOL 3350 17 GM PACKET PO SCH (17:06)
[2017-12-30] MEDS: ZOLPIDEM TARTRATE 10 MG TABLET PO PRN (20:52)
[2017-12-30] MEDS: OLANZapine 10 MG RAPDIS TABLET PO SCH (20:52)
[2017-12-31 00:30] VITALS: BP 126/69
[2017-12-31] MEDS: LORazepam 2 MG TABLET PO PRN ×3 (02:47→14:26)
[2017-12-31] MEDS: OxyCODONE HCL 10 MG IR TABLET PO SCH ×4 (05:53→23:54)
[2017-12-31] MEDS: PANTOPRAZOLE SODIUM 40 MG DR TABLET PO SCH (09:00)
[2017-12-31] MEDS: FOLIC ACID 1 MG TABLET PO SCH (09:00)
[2017-12-31] MEDS: MULTIVITAMINS WITH MINERALS, THERAPEUTIC TABLET PO SCH (09:00)
[2017-12-31] MEDS ORDERED: SERTRALINE HCL 50 MG TABLET PO SCH (09:00)
[2017-12-31] MEDS: POLYETHYLENE GLYCOL 3350 17 GM PACKET PO SCH (09:00)
[2017-12-31] MEDS: THIAMINE HCL 100 MG TABLET PO SCH ×2 (09:00→17:00)
[2017-12-31] MEDS: LevETIRAcetam 500 MG TABLET PO SCH ×2 (09:52→17:05)
[2017-12-31] MEDS: NICOTINE 21 MG/24 HOUR PATCH TD SCH (09:55)
[2017-12-31] MEDS ORDERED: MAGNESIUM HYDROXIDE SUSPENSION 30 ML UDCUP PO PRN (11:15)
[2017-12-31] MEDS ORDERED: LOPERAMIDE HCL 2 MG CAPSULE PO PRN (11:15)
[2017-12-31] MEDS ORDERED: TUBERCULIN, PURIFIED PROTEIN DERIVATIVE 5 TU/0.1 ML SYG ID ONE (11:15)
[2017-12-31] MEDS ORDERED: PROMETHAZINE HCL 25 MG TABLET PO PRN (11:15)
[2017-12-31] MEDS ORDERED: MAG HYDROX/AL HYDROX/SIMETH ES 30 ML SUSPENSION UDCUP PO PRN (11:15)
[2017-12-31] MEDS: ACAMPROSATE CALCIUM 333 MG DR TABLET PO SCH ×2 (12:12→17:05)
[2017-12-31 13:08] VITALS: BP 108/77
[2017-12-31] MEDS ORDERED: GABAPENTIN 300 MG CAPSULE PO PRN (16:15)
[2017-12-31] MEDS ORDERED: HydrOXYzine PAMOATE 50 MG CAPSULE PO PRN (16:15)
[2017-12-31] MEDS ORDERED: GuaiFENesin/D-METHORPHAN [SUGAR-FREE] 200-20MG/10 ML SYRUP UDCUP PO PRN (16:15)
[2017-12-31 16:53] VITALS: BP 124/81
[2017-12-31] MEDS ORDERED: THIAMINE HCL 100 MG TABLET PO SCH (17:00)
[2017-12-31] MEDS: GABAPENTIN 400 MG CAPSULE PO SCH ×2 (17:09→21:09)
[2017-12-31] MEDS: OLANZapine 10 MG RAPDIS TABLET PO SCH (21:09)
[2017-12-31] MEDS: DIVALPROEX SODIUM 500 MG ER TABLET PO SCH (21:09)
[2018-01-01] MEDS: OxyCODONE HCL 10 MG IR TABLET PO SCH ×3 (06:25→17:19)
[2018-01-01 08:15] VITALS: BP 133/97
[2018-01-01 08:20] LABS: FREE T4 (FREE THYROXINE) 1.42 ng/dL (0.76-1.46); THYROID STIMULATING HORMONE 0.34 uIU/mL (0.36-3.74)
[2018-01-01] MEDS: POLYETHYLENE GLYCOL 3350 17 GM PACKET PO SCH (09:00)
[2018-01-01] MEDS: THIAMINE HCL 100 MG TABLET PO SCH ×2 (09:00→16:40)
[2018-01-01] MEDS: LevETIRAcetam 500 MG TABLET PO SCH ×2 (09:00→16:40)
[2018-01-01] MEDS: FOLIC ACID 1 MG TABLET PO SCH ×2 (09:00)
[2018-01-01] MEDS: PANTOPRAZOLE SODIUM 40 MG DR TABLET PO SCH (09:00)
[2018-01-01] MEDS: MULTIVITAMINS WITH MINERALS, THERAPEUTIC TABLET PO SCH ×2 (09:00)
[2018-01-01] MEDS: DULoxetine HCL 30 MG CAPSULE PO SCH (09:00)
[2018-01-01] MEDS: ACAMPROSATE CALCIUM 333 MG DR TABLET PO SCH ×3 (09:00→16:41)
[2018-01-01] MEDS ORDERED: DULoxetine HCL 20 MG CAPSULE PO SCH (09:00)
[2018-01-01] MEDS: NICOTINE 21 MG/24 HOUR PATCH TD SCH (09:00)
[2018-01-01] MEDS ORDERED: DiphenhydrAMINE HCL 50 MG/ML VIAL IM ONE (10:45)
[2018-01-01] MEDS ORDERED: FluPHENAZine HCL 2.5 MG/ML INJ IM ONE (10:45)
[2018-01-01] MEDS ORDERED: LORazepam 2 MG/ML VIAL IM ONE (10:45)
[2018-01-01] MEDS: GABAPENTIN 300 MG CAPSULE PO SCH ×2 (13:00→16:42)
[2018-01-01 17:00] VITALS: BP 121/88
[2018-01-01] MEDS: DIVALPROEX SODIUM 500 MG ER TABLET PO SCH (21:33)
[2018-01-01] MEDS: OLANZapine 10 MG RAPDIS TABLET PO SCH (21:34)
[2018-01-02] MEDS: OxyCODONE HCL 10 MG IR TABLET PO SCH ×4 (00:07→17:33)
[2018-01-02] MEDS: MULTIVITAMINS WITH MINERALS, THERAPEUTIC TABLET PO SCH ×2 (09:00→10:46)
[2018-01-02] MEDS: FOLIC ACID 1 MG TABLET PO SCH ×2 (09:00→10:46)
[2018-01-02] MEDS: LevETIRAcetam 500 MG TABLET PO SCH ×2 (10:46→16:50)
[2018-01-02] MEDS: THIAMINE HCL 100 MG TABLET PO SCH ×2 (10:47→16:50)
[2018-01-02] MEDS: DULoxetine HCL 30 MG CAPSULE PO SCH (10:47)
[2018-01-02] MEDS: ACAMPROSATE CALCIUM 333 MG DR TABLET PO SCH ×3 (10:47→16:51)
[2018-01-02] MEDS: PANTOPRAZOLE SODIUM 40 MG DR TABLET PO SCH (10:47)
[2018-01-02] MEDS: GABAPENTIN 300 MG CAPSULE PO SCH ×3 (10:47→16:51)
[2018-01-02] MEDS: POLYETHYLENE GLYCOL 3350 17 GM PACKET PO SCH (10:48)
[2018-01-02] MEDS: NICOTINE 21 MG/24 HOUR PATCH TD SCH (10:49)
[2018-01-02] MEDS: OLANZapine 10 MG RAPDIS TABLET PO SCH (20:56)
[2018-01-02] MEDS: DIVALPROEX SODIUM 500 MG ER TABLET PO SCH (20:58)
[2018-01-03] MEDS: OxyCODONE HCL 10 MG IR TABLET PO SCH ×5 (00:11→17:20)
[2018-01-03 01:06] VITALS: BP 96/66
[2018-01-03 08:15] VITALS: BP 117/74
[2018-01-03] MEDS: FOLIC ACID 1 MG TABLET PO SCH ×2 (09:00→12:05)
[2018-01-03] MEDS: MULTIVITAMINS WITH MINERALS, THERAPEUTIC TABLET PO SCH ×2 (09:00→12:06)
[2018-01-03] MEDS: LevETIRAcetam 500 MG TABLET PO SCH ×2 (12:04→16:17)
[2018-01-03] MEDS: THIAMINE HCL 100 MG TABLET PO SCH ×2 (12:05→16:17)
[2018-01-03] MEDS: GABAPENTIN 300 MG CAPSULE PO SCH ×3 (12:05→16:17)
[2018-01-03] MEDS: DULoxetine HCL 30 MG CAPSULE PO SCH (12:06)
[2018-01-03] MEDS: PANTOPRAZOLE SODIUM 40 MG DR TABLET PO SCH (12:06)
[2018-01-03] MEDS: ACAMPROSATE CALCIUM 333 MG DR TABLET PO SCH ×3 (12:06→16:16)
[2018-01-03] MEDS: NICOTINE 21 MG/24 HOUR PATCH TD SCH (12:07)
[2018-01-03] MEDS: POLYETHYLENE GLYCOL 3350 17 GM PACKET PO SCH (12:07)
[2018-01-03 17:17] VITALS: BP 119/78
[2018-01-03] MEDS: OLANZapine 10 MG RAPDIS TABLET PO SCH (20:52)
[2018-01-03] MEDS: DIVALPROEX SODIUM 500 MG ER TABLET PO SCH (20:52)
[2018-01-04 00:15] VITALS: BP 115/87
[2018-01-04] MEDS: OxyCODONE HCL 10 MG IR TABLET PO SCH ×4 (00:24→17:07)
[2018-01-04 05:55] VITALS: BP 118/86
[2018-01-04] MEDS: NICOTINE 21 MG/24 HOUR PATCH TD SCH (09:00)
[2018-01-04] MEDS: FOLIC ACID 1 MG TABLET PO SCH (10:11)
[2018-01-04] MEDS: PANTOPRAZOLE SODIUM 40 MG DR TABLET PO SCH (10:12)
[2018-01-04] MEDS: THIAMINE HCL 100 MG TABLET PO SCH ×2 (10:12→17:07)
[2018-01-04] MEDS: MULTIVITAMINS WITH MINERALS, THERAPEUTIC TABLET PO SCH (10:12)
[2018-01-04] MEDS: POLYETHYLENE GLYCOL 3350 17 GM PACKET PO SCH (10:13)
[2018-01-04] MEDS: GABAPENTIN 300 MG CAPSULE PO SCH ×3 (10:13→17:06)
[2018-01-04] MEDS: LevETIRAcetam 500 MG TABLET PO SCH ×2 (10:13→17:07)
[2018-01-04] MEDS: DULoxetine HCL 30 MG CAPSULE PO SCH (10:13)
[2018-01-04] MEDS: ACAMPROSATE CALCIUM 333 MG DR TABLET PO SCH ×3 (10:14→17:06)
[2018-01-04 10:48] VITALS: BP 110/74
[2018-01-04] MEDS ORDERED: GABA-531 PO (14:23)
[2018-01-04] MEDS ORDERED: OLAN10TA22 PO (14:23)
[2018-01-04] MEDS ORDERED: DIVA500T52 PO (14:23)
[2018-01-04] MEDS ORDERED: DULO30CA2 PO (14:23)
[2018-01-04] MEDS ORDERED: ACAM333T7 PO (14:23)
[2018-01-04] MEDS ORDERED: LEVE500T53 PO (14:23)
[2018-01-04] MEDS ORDERED: MIRALAX PO (14:36)
[2018-01-04] MEDS ORDERED: PANT40TA25 PO (14:36)
== END 2018-01-04 18:00 | disposition home or self-care (01) | DRG 885 ==
LOC: EMS 04:54 → 3EI 17:20
PROVIDERS: ADMIT Psychiatry & Neurology Child & Adolescent Psychiatry; ATTEND Psychiatry & Neurology Psychiatry
PROC: 3E0234Z Introduction of Serum, Toxoid and Vaccine into Muscle, Percutaneous Approach (ICD-10-PCS; principal; 2017-12-26)
DX: F25.0 Schizoaffective disorder, bipolar type (principal); G62.9 Polyneuropathy, unspecified; R45.851 Suicidal ideations; I11.0 Hypertensive heart disease with heart failure; I50.9 Heart failure, unspecified; F11.23 Opioid dependence with withdrawal; G40.909 Epilepsy, unspecified, not intractable, without status epilepticus; B19.20 Unspecified viral hepatitis C without hepatic coma; F15.90 Other stimulant use, unspecified, uncomplicated; G47.33 Obstructive sleep apnea (adult) (pediatric); G89.4 Chronic pain syndrome; K21.9 Gastro-esophageal reflux disease without esophagitis; J44.9 Chronic obstructive pulmonary disease, unspecified; T40.605A Adverse effect of unspecified narcotics, initial encounter; K59.03 Drug induced constipation; F17.210 Nicotine dependence, cigarettes, uncomplicated; F29 Unspecified psychosis not due to a substance or known physiological condition; R00.1 Bradycardia, unspecified; M79.7 Fibromyalgia; Z59.0 Homelessness; Z88.8 Allergy status to other drugs, medicaments and biological substances; Z91.14 Patient's other noncompliance with medication regimen; Z23 Encounter for immunization
CPT/HCPCS: 84439; 84443; 86592; 99285; 99406; G0480; J1200; J2060; J2550; J3420; J3490

== ENCOUNTER 2021-01-03 12:41 | Inpatient (IN) | payer MEDICARE, MEDICAID ==
[~2021-01-03] VITALS: Ht 180.3 cm; Wt 86.2 kg
[~2021-01-03 12:41] MED LIST changes: +DIVA-80 PO; -DSS100 PO; -DULO30CA2 PO; +DULO30CA96 PO; +GABA-531 PO; +OLAN10TA22 PO; -OLAN5TAB40 PO; -OMEP20 PO; +PANT-31 PO; -SULF1TAB42 PO; -VITAD1000 PO
[2021-01-03 14:27] LABS: COVID AG,FIA SOURCE NASOPHARYNGEAL
[2021-01-03] MEDS ORDERED: GuaiFENesin/D-METHORPHAN [SUGAR-FREE] 200-20MG/10 ML SYRUP UDCUP PO PRN (15:45)
[2021-01-03] MEDS ORDERED: CYANOCOBALAMIN 1,000 MCG/ML VIAL IM ONE (15:45)
[2021-01-03] MEDS ORDERED: MAGNESIUM HYDROXIDE SUSPENSION 30 ML UDCUP PO PRN (15:45)
[2021-01-03] MEDS ORDERED: ACETAMINOPHEN 325 MG TABLET PO PRN (15:45)
[2021-01-03] MEDS ORDERED: HydrOXYzine PAMOATE 50 MG CAPSULE PO PRN ×2 (15:45)
[2021-01-03] MEDS ORDERED: CloNIDine HCL 0.1 MG TABLET PO PRN (15:45)
[2021-01-03] MEDS ORDERED: ZOLPIDEM TARTRATE 10 MG TABLET PO PRN (15:45)
[2021-01-03] MEDS ORDERED: IBUPROFEN 600 MG TABLET PO PRN (15:45)
[2021-01-03] MEDS ORDERED: MAG HYDROX/AL HYDROX/SIMETH ES 30 ML SUSPENSION UDCUP PO PRN ×2 (15:45)
[2021-01-03] MEDS ORDERED: PROMETHAZINE HCL 25 MG TABLET PO PRN (15:45)
[2021-01-03] MEDS ORDERED: LOPERAMIDE HCL 2 MG CAPSULE PO PRN ×2 (15:45)
[2021-01-03] MEDS ORDERED: TUBERCULIN, PURIFIED PROTEIN DERIVATIVE 5 TU/0.1 ML SYRINGE ID ONE (15:45)
[2021-01-03 15:58] LABS: BASOPHILS % (AUTO) 0.5 % (0.0-2.0); EOSINOPHILS % (AUTO) 0.9 % (1.0-6.0); HEMATOCRIT 39.1 % (41-53); HEMOGLOBIN 13.5 g/dL (13.5-17.5); LYMPHOCYTES # (AUTO) 1.8 K/uL (1.0-4.8); LYMPHOCYTES % (AUTO) 21.7 % (22.0-44.0); MEAN CORPUSCULAR HEMOGLOBIN 28.1 pg (26.0-34.0); MEAN CORPUSCULAR HGB CONC 34.6 G/dL (31.0-37.0); MEAN CORPUSCULAR VOLUME 81 fL (80-100); MONOCYTES # (AUTO) 0.8 K/uL (0.1-1.0); MONOCYTES % (AUTO) 9.5 % (2.0-9.0); NEUTROPHILS # (AUTO) 5.5 K/uL (1.8-7.7); NEUTROPHILS % (AUTO) 67.4 % (40.0-70.0); PLATELET COUNT (AUTO) 383 K/uL (150-450); RED BLOOD CELL COUNT(AUTO) 4.81 MIL/uL (4.50-5.90); RED CELL DISTRIBUTION WIDTH 13.3 % (11.5-14.5)
[2021-01-03 16:09] LABS: ANION GAP 12 mmol/L (8-16); CALCIUM, TOTAL 9.1 mg/dL (8.8-10.5); CARBON DIOXIDE 26 mmol/L (22-29); CHLORIDE 100 mmol/L (98-107); GLOMERULAR FILTR. RATE CALC > 60 mL/min (>60); GLUCOSE,RANDOM 93 mg/dL (70-110); POTASSIUM 3.3 mmol/L (3.5-5.1); SODIUM SERUM 138 mmol/L (136-145); UREA NITROGEN, BLOOD 16 mg/dL (7-18)
[2021-01-03 16:22] LABS: ALANINE AMINOTRANSFERASE 86 U/L (12-78); ALBUMIN 3.7 g/dL (3.4-5.0); ALKALINE PHOSPHATASE 95 U/L (46-116); ASPARTATE AMINOTRANSFERASE 57 U/L (15-37); BILIRUBIN,TOTAL 0.7 mg/dL (0.1-1.0); TOTAL PROTEIN, SERUM 7.6 g/dL (6.4-8.2); VALPROIC ACID 5 mcg/mL (50-100)
[2021-01-03] MEDS ORDERED: POTASSIUM CHLORIDE 20 MEQ ER TABLET PO ONE (17:00)
[2021-01-03] MEDS: CloNIDine HCL 0.1 MG TABLET PO SCH ×2 (17:14→22:00)
[2021-01-03] MEDS: ACAMPROSATE CALCIUM 333 MG DR TABLET PO SCH ×2 (17:32→18:53)
[2021-01-03] MEDS: THIAMINE 100 MG TABLET PO SCH ×2 (17:32→18:54)
[2021-01-03] MEDS: LevETIRAcetam 500 MG TABLET PO SCH ×2 (17:32→18:54)
[2021-01-03 18:45] VITALS: BP 152/93
[2021-01-03 19:45] VITALS: BP 158/76
[2021-01-03 20:06] VITALS: BP 158/76
[2021-01-03 20:45] VITALS: BP 136/71
[2021-01-03] MEDS ORDERED: OLANZapine 5 MG RAPDIS TABLET PO SCH (21:00)
[2021-01-03] MEDS: MELATONIN 5 MG TABLET PO SCH (21:00)
[2021-01-03] MEDS: GABAPENTIN 300 MG CAPSULE PO SCH (21:00)
[2021-01-04 06:25] VITALS: BP 164/83
[2021-01-04] MEDS: CloNIDine HCL 0.1 MG TABLET PO SCH ×4 (06:30→22:00)
[2021-01-04 08:00] VITALS: BP 137/77
[2021-01-04] MEDS: ACAMPROSATE CALCIUM 333 MG DR TABLET PO SCH ×3 (09:32→16:21)
[2021-01-04] MEDS: THIAMINE 100 MG TABLET PO SCH ×2 (09:32→16:21)
[2021-01-04] MEDS: OMEGA-3/DHA/EPA/FISH OIL 1,000 MG CAPSULE PO SCH (09:32)
[2021-01-04] MEDS: LevETIRAcetam 500 MG TABLET PO SCH ×2 (09:32→16:25)
[2021-01-04] MEDS: DULoxetine HCL 20 MG CAPSULE PO SCH (09:33)
[2021-01-04] MEDS: FOLIC ACID 1 MG TABLET PO SCH (09:33)
[2021-01-04] MEDS: MULTIVITAMINS WITH MINERALS, THERAPEUTIC TABLET PO SCH (09:33)
[2021-01-04] MEDS: GABAPENTIN 300 MG CAPSULE PO SCH ×4 (09:33→20:44)
[2021-01-04 09:45] VITALS: BP 137/77
[2021-01-04] MEDS: LORazepam 2 MG TABLET PO PRN ×2 (12:46→16:49)
[2021-01-04 13:26] VITALS: BP 147/88
[2021-01-04] MEDS: OLANZapine 5 MG RAPDIS TABLET PO PRN (16:26)
[2021-01-04 16:50] VITALS: BP 149/79
[2021-01-04 16:51] VITALS: BP 149/77
[2021-01-04] MEDS: MELATONIN 5 MG TABLET PO SCH (20:44)
[2021-01-04] MEDS: OLANZapine 10 MG RAPDIS TABLET PO SCH (20:45)
[2021-01-05 02:30] VITALS: BP 136/80
[2021-01-05] MEDS: CloNIDine HCL 0.1 MG TABLET PO SCH ×4 (06:00→21:09)
[2021-01-05 06:19] VITALS: BP 136/87
[2021-01-05] MEDS: OMEGA-3/DHA/EPA/FISH OIL 1,000 MG CAPSULE PO SCH (08:22)
[2021-01-05] MEDS: SENNA/DOCUSATE SODIUM 8.6-50 MG TABLET PO SCH (08:22)
[2021-01-05] MEDS: GABAPENTIN 300 MG CAPSULE PO SCH ×4 (08:22→21:10)
[2021-01-05] MEDS: MULTIVITAMINS WITH MINERALS, THERAPEUTIC TABLET PO SCH (08:23)
[2021-01-05] MEDS: ACAMPROSATE CALCIUM 333 MG DR TABLET PO SCH ×3 (08:23→16:18)
[2021-01-05] MEDS: THIAMINE 100 MG TABLET PO SCH ×2 (08:23→16:18)
[2021-01-05] MEDS: PANTOPRAZOLE SODIUM 40 MG DR TABLET PO SCH (08:23)
[2021-01-05] MEDS: DULoxetine HCL 20 MG CAPSULE PO SCH (08:23)
[2021-01-05] MEDS: FOLIC ACID 1 MG TABLET PO SCH (08:23)
[2021-01-05] MEDS: LevETIRAcetam 500 MG TABLET PO SCH ×2 (08:23→16:17)
[2021-01-05] MEDS: POLYETHYLENE GLYCOL 3350 17 GM PACKET PO SCH (08:24)
[2021-01-05] MEDS: NICOTINE 21 MG/24 HOUR PATCH TD SCH (08:24)
[2021-01-05] MEDS: LORazepam 2 MG TABLET PO PRN ×2 (10:19→14:25)
[2021-01-05 17:46] VITALS: BP 161/86
[2021-01-05 17:48] VITALS: BP 161/86
[2021-01-05] MEDS: OLANZapine 10 MG RAPDIS TABLET PO SCH (21:09)
[2021-01-05] MEDS: MELATONIN 5 MG TABLET PO SCH (21:10)
[2021-01-06 01:22] VITALS: BP 146/79
[2021-01-06 01:23] VITALS: BP 146/79
[2021-01-06] MEDS: LORazepam 2 MG TABLET PO PRN ×2 (02:02→08:37)
[2021-01-06] MEDS: CloNIDine HCL 0.1 MG TABLET PO SCH ×4 (06:00→22:18)
[2021-01-06] MEDS: PANTOPRAZOLE SODIUM 40 MG DR TABLET PO SCH (08:35)
[2021-01-06] MEDS: FOLIC ACID 1 MG TABLET PO SCH (08:35)
[2021-01-06] MEDS: THIAMINE 100 MG TABLET PO SCH ×2 (08:35→17:00)
[2021-01-06] MEDS: ACAMPROSATE CALCIUM 333 MG DR TABLET PO SCH ×3 (08:35→17:00)
[2021-01-06] MEDS: SENNA/DOCUSATE SODIUM 8.6-50 MG TABLET PO SCH (08:35)
[2021-01-06] MEDS: MULTIVITAMINS WITH MINERALS, THERAPEUTIC TABLET PO SCH (08:36)
[2021-01-06] MEDS: DULoxetine HCL 20 MG CAPSULE PO SCH (08:36)
[2021-01-06] MEDS: OMEGA-3/DHA/EPA/FISH OIL 1,000 MG CAPSULE PO SCH (08:36)
[2021-01-06] MEDS: LevETIRAcetam 500 MG TABLET PO SCH ×2 (08:36→17:00)
[2021-01-06] MEDS: GABAPENTIN 300 MG CAPSULE PO SCH ×5 (08:36→22:18)
[2021-01-06] MEDS: OLANZapine 5 MG RAPDIS TABLET PO PRN (08:38)
[2021-01-06] MEDS: POLYETHYLENE GLYCOL 3350 17 GM PACKET PO SCH (09:00)
[2021-01-06] MEDS: NICOTINE 21 MG/24 HOUR PATCH TD SCH (09:00)
[2021-01-06 09:24] VITALS: BP 139/96
[2021-01-06 16:06] VITALS: BP 140/83
[2021-01-06] MEDS: MELATONIN 5 MG TABLET PO SCH ×2 (21:00→22:19)
[2021-01-06] MEDS: OLANZapine 10 MG RAPDIS TABLET PO SCH ×2 (21:00→22:18)
[2021-01-06 21:34] VITALS: BP 125/85
[2021-01-07 06:20] VITALS: BP 134/82
[2021-01-07] MEDS: CloNIDine HCL 0.1 MG TABLET PO SCH ×4 (06:22→21:19)
[2021-01-07 08:28] VITALS: BP 112/93
[2021-01-07] MEDS: GABAPENTIN 300 MG CAPSULE PO SCH ×3 (08:42→16:39)
[2021-01-07] MEDS: MULTIVITAMINS WITH MINERALS, THERAPEUTIC TABLET PO SCH (08:42)
[2021-01-07] MEDS: OMEGA-3/DHA/EPA/FISH OIL 1,000 MG CAPSULE PO SCH (08:43)
[2021-01-07] MEDS: LevETIRAcetam 500 MG TABLET PO SCH ×2 (08:43→16:38)
[2021-01-07] MEDS: PANTOPRAZOLE SODIUM 40 MG DR TABLET PO SCH (08:43)
[2021-01-07] MEDS: THIAMINE 100 MG TABLET PO SCH ×2 (08:44→16:39)
[2021-01-07] MEDS: NICOTINE 21 MG/24 HOUR PATCH TD SCH (08:44)
[2021-01-07] MEDS: POLYETHYLENE GLYCOL 3350 17 GM PACKET PO SCH (08:44)
[2021-01-07] MEDS: ACAMPROSATE CALCIUM 333 MG DR TABLET PO SCH ×3 (08:45→16:38)
[2021-01-07] MEDS: FOLIC ACID 1 MG TABLET PO SCH (08:46)
[2021-01-07] MEDS: SENNA/DOCUSATE SODIUM 8.6-50 MG TABLET PO SCH (08:46)
[2021-01-07] MEDS: DULoxetine HCL 20 MG CAPSULE PO SCH (08:46)
[2021-01-07] MEDS: LORazepam 2 MG TABLET PO PRN ×3 (10:47→19:23)
[2021-01-07] MEDS: OLANZapine 5 MG RAPDIS TABLET PO PRN (15:00)
[2021-01-07 16:23] VITALS: BP 109/86
[2021-01-07 19:03] VITALS: BP 125/80
[2021-01-07] MEDS: MELATONIN 5 MG TABLET PO SCH (20:24)
[2021-01-07] MEDS: GABAPENTIN 400 MG CAPSULE PO SCH (20:25)
[2021-01-07] MEDS: OLANZapine 10 MG RAPDIS TABLET PO SCH (20:25)
[2021-01-08] MEDS: LORazepam 2 MG TABLET PO PRN (03:57)
[2021-01-08 06:23] VITALS: BP 130/80
[2021-01-08] MEDS: CloNIDine HCL 0.1 MG TABLET PO SCH ×4 (06:37→22:21)
[2021-01-08] MEDS: GABAPENTIN 400 MG CAPSULE PO SCH ×4 (08:15→21:11)
[2021-01-08] MEDS: PANTOPRAZOLE SODIUM 40 MG DR TABLET PO SCH (08:16)
[2021-01-08] MEDS: LevETIRAcetam 500 MG TABLET PO SCH ×2 (08:16→17:13)
[2021-01-08] MEDS: MULTIVITAMINS WITH MINERALS, THERAPEUTIC TABLET PO SCH (08:16)
[2021-01-08] MEDS: ACAMPROSATE CALCIUM 333 MG DR TABLET PO SCH ×3 (08:16→17:13)
[2021-01-08] MEDS: SENNA/DOCUSATE SODIUM 8.6-50 MG TABLET PO SCH (08:17)
[2021-01-08] MEDS: POLYETHYLENE GLYCOL 3350 17 GM PACKET PO SCH (08:17)
[2021-01-08] MEDS: OMEGA-3/DHA/EPA/FISH OIL 1,000 MG CAPSULE PO SCH (08:17)
[2021-01-08] MEDS: FOLIC ACID 1 MG TABLET PO SCH (08:17)
[2021-01-08] MEDS: THIAMINE 100 MG TABLET PO SCH ×2 (08:18→17:13)
[2021-01-08] MEDS: DULoxetine HCL 20 MG CAPSULE PO SCH (08:18)
[2021-01-08] MEDS: NICOTINE 21 MG/24 HOUR PATCH TD SCH (08:19)
[2021-01-08 12:39] VITALS: BP 140/80
[2021-01-08 19:14] VITALS: BP 118/82
[2021-01-08] MEDS ORDERED: OMEG-135 PO (20:01)
[2021-01-08] MEDS ORDERED: LEVE500T53 PO (20:01)
[2021-01-08] MEDS ORDERED: NALT50TA PO (20:01)
[2021-01-08] MEDS ORDERED: GABA-1201 PO (20:01)
[2021-01-08] MEDS ORDERED: DULO20CA27 PO (20:01)
[2021-01-08] MEDS ORDERED: MELA5TAB3 PO (20:01)
[2021-01-08] MEDS ORDERED: OLAN10TA22 PO (20:01)
[2021-01-08] MEDS ORDERED: POLY17PO47 PO (20:17)
[2021-01-08] MEDS: OLANZapine 10 MG RAPDIS TABLET PO SCH (21:11)
[2021-01-08] MEDS: MELATONIN 5 MG TABLET PO SCH (21:12)
[2021-01-09 00:45] VITALS: BP 137/85
[2021-01-09] MEDS: LORazepam 2 MG TABLET PO PRN ×2 (00:45→06:59)
[2021-01-09] MEDS: CloNIDine HCL 0.1 MG TABLET PO SCH (06:19)
[2021-01-09 06:26] VITALS: BP 145/85
[2021-01-09] MEDS ORDERED: SENN-237 PO (08:05)
[2021-01-09] MEDS ORDERED: AMLO-257 PO (08:06)
[2021-01-09] MEDS: OMEGA-3/DHA/EPA/FISH OIL 1,000 MG CAPSULE PO SCH (08:19)
[2021-01-09] MEDS: FOLIC ACID 1 MG TABLET PO SCH (08:20)
[2021-01-09] MEDS: SENNA/DOCUSATE SODIUM 8.6-50 MG TABLET PO SCH (08:20)
[2021-01-09] MEDS: MULTIVITAMINS WITH MINERALS, THERAPEUTIC TABLET PO SCH (08:20)
[2021-01-09] MEDS: PANTOPRAZOLE SODIUM 40 MG DR TABLET PO SCH (08:20)
[2021-01-09] MEDS: POLYETHYLENE GLYCOL 3350 17 GM PACKET PO SCH (08:21)
[2021-01-09] MEDS: LevETIRAcetam 500 MG TABLET PO SCH (08:21)
[2021-01-09] MEDS: GABAPENTIN 400 MG CAPSULE PO SCH (08:21)
[2021-01-09] MEDS: DULoxetine HCL 20 MG CAPSULE PO SCH (08:21)
[2021-01-09] MEDS: NICOTINE 21 MG/24 HOUR PATCH TD SCH (08:22)
[2021-01-09] MEDS: THIAMINE 100 MG TABLET PO SCH (08:22)
[2021-01-09 08:35] VITALS: BP 118/80
[2021-01-09] MEDS ORDERED: NALTREXONE HCL 50 MG TABLET PO SCH (09:00)
== END 2021-01-09 09:15 | disposition home or self-care (01) | DRG 885 ==
LOC: EMS 12:50 → 3EX 17:01
PROVIDERS: ADMIT Psychiatry & Neurology Psychiatry; ATTEND Psychiatry & Neurology Psychiatry
DX: F25.9 Schizoaffective disorder, unspecified (principal); I11.0 Hypertensive heart disease with heart failure; B19.20 Unspecified viral hepatitis C without hepatic coma; F11.20 Opioid dependence, uncomplicated; R45.851 Suicidal ideations; R56.9 Unspecified convulsions; E87.6 Hypokalemia; J44.9 Chronic obstructive pulmonary disease, unspecified; G47.33 Obstructive sleep apnea (adult) (pediatric); F12.90 Cannabis use, unspecified, uncomplicated; F17.210 Nicotine dependence, cigarettes, uncomplicated; F41.9 Anxiety disorder, unspecified; G89.29 Other chronic pain; I50.9 Heart failure, unspecified; Z20.822 Contact with and (suspected) exposure to COVID-19; K21.9 Gastro-esophageal reflux disease without esophagitis; K59.00 Constipation, unspecified; Z59.0 Homelessness; Z65.3 Problems related to other legal circumstances; Z87.01 Personal history of pneumonia (recurrent); Z88.8 Allergy status to other drugs, medicaments and biological substances; Z91.19 Patient's noncompliance with other medical treatment and regimen
CPT/HCPCS: 87426; 99285; A9575; G0378; G0480; J3420

== ENCOUNTER 2022-11-04 13:42 | Emergency (ER) | payer MEDICARE, OTHER ==
[~2022-11-04] VITALS: Ht 185.4 cm; Wt 102.7 kg
[~2022-11-04 13:42] MED LIST changes: -ACAM333T7 PO; +DULO20CA71 PO; -DULO30CA96 PO; +GABA-1201 PO; -GABA-531 PO; +LEVE500T20 PO; -LEVE500T53 PO; +MELA5TAB40 PO; -MIRALAX PO; +NALT50TA6 PO; -OLAN10TA22 PO; +OLAN5TAB52 PO; +OMEG-12 PO; -PANT-31 PO
[2022-11-04] MEDS ORDERED: BUTE12CR TP (14:31)
[2022-11-04 14:35] VITALS: BP 115/82
== END 2022-11-04 14:42 | disposition home or self-care (01) ==
LOC: EMS 13:46
DX: B35.6 Tinea cruris (principal); J44.9 Chronic obstructive pulmonary disease, unspecified; F32.A Depression, unspecified; F20.9 Schizophrenia, unspecified; I50.9 Heart failure, unspecified; F17.210 Nicotine dependence, cigarettes, uncomplicated; F15.90 Other stimulant use, unspecified, uncomplicated; F11.90 Opioid use, unspecified, uncomplicated; F19.90 Other psychoactive substance use, unspecified, uncomplicated; Z88.8 Allergy status to other drugs, medicaments and biological substances
CPT/HCPCS: 99282; Z7502